=== PATIENT | female | born 1975 | race Caucasian/White ===

== ENCOUNTER → 2017-02-21 | Outpatient (CLI) | payer BC ==
--- NOTE | 2017-02-28 12:24 | MY ---
EXAMINATION: Bilateral digital mammography utilizing CAD. HISTORY: Screening exam. Comparison is made to previous studies dated 10/16/2015. FINDINGS: Bilateral heterogeneously dense breast tissue. No suspicious calcifications, masses or a rchitectural distortions. No pathologic appearing lymph nodes, no abnormal skin thickening or nipp le inversion. CAD highlighted regions appear normal at this time. IMPRESSION: BI-RADS category I - negative mammogram. Continued screening according to ACR-ACS gu idelines suggested. THE FALSE-NEGATIVE RATE OF MAMMOGRAM IS APPROXIMATELY 10%. MANAGEMENT OF A PALPABLE ABNORMALITY MUST BE BASED UPON CLINICAL GROUNDS. SENSITIVITY FOR DETECTION OF ABNORMALITIES IN DENSE BREASTS IS LOW. NOTE: A letter will be sent to the patient regarding findings. [facility] -- VINCENT Kang [phone] - FAX [phone]
== END ==
LOC: MW.MAM 12:53
PROVIDERS: ATTEND Obstetrics & Gynecology
DX: Z12.31 Encounter for screening mammogram for malignant neoplasm of breast (principal)
CPT/HCPCS: G0202; G0202-26

== ENCOUNTER 2019-10-19 09:13 | Day surgery (SDC) | payer BC ==
[~2019-10-19 09:13] MED LIST: 50% Dextrose in Water 50 ML Syringe IVPUSH PRN; Atropine 0.1 MG/ML 10 ML Syringe IVPUSH PRN; EPINEPHrine 1:10,000 1 MG/10 ML Syringe IVPUSH PRN; Midazolam 1 MG/ML 2 ML SDV ONE; Naloxone 0.4 MG/ML Syringe IVPUSH PRN; Propofol 200 MG/20 ML SDV ONE; fentaNYL 100 MCG/2 ML SDV IVPUSH PRN; fentaNYL 250 MCG/5 ML SDV ONE
--- NOTE | 2019-10-19 09:47 | PCM.PREANE ---
Preanesthetic Assessment - Anesthesia/Transfusion/Family Hx Anesthesia History: Prior Anesthesia Without Reaction Family History of Anesthesia Reaction: No Transfusion History: No Prior Transfusion(s) Intubation History: Unknown - Review of Systems General: No Symptoms Pulmonary: No Symptoms Cardiovascular: No Symptoms Gastrointestinal: No Symptoms Neurological: No Symptoms Other: Reports: None - Physical Assessment Height: 5 ft 7.25 in Weight: 107.048 kg ASA Class: 2 Mental Status: Alert & Oriented x3 Airway Class: Mallampati = 1 Dentition: Reports: Normal Dentition, Bridge (fixed right and left (back)) Thyro-Mental Finger Breadths: 3 Mouth Opening Finger Breadths: 3 ROM/Head Extension: Full Lungs: Clear to Auscultation, Normal Respiratory Effort Cardiovascular: Regular Rate, Regular Rhythm - Allergies Allergies/Adverse Reactions: Allergies Allergy/AdvReac Type Severity Reaction Status Date / Time grass pollen Allergy itchy-water Verified 10/16/19 10:09 eyes mold Allergy itchy-watery Verified 10/16/19 10:09 eyes - Blood Blood Available: No - Anesthesia Plan Pre-Op Medication Ordered: None - Acknowledgements Anesthesia Type Planned: General Anesthesia Pt an Appropriate Candidate for the Planned Anesthesia: Yes Alternatives and Risks of Anesthesia Discussed w Pt/Guardian: Yes Pt/Guardian Understands and Agrees with Anesthesia Plan: Yes PreAnesthesia Questionnaire HEENT History: Reports: Allergic Rhinitis Cardiovascular History: Reports: None Respiratory History: Reports: None Gastrointestinal History: Reports: None Genitourinary History: Reports: Urinary Incontinence 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 MANAGER History: Reports: None Musculoskeletal History: Reports: Fracture, Neck Pain, Chronic Other Musculoskeletal History: hx fx rt heel and rt wrist, herniated discs in neck Neurological History: Reports: Migraines (conrolled by propranolol) Psychiatric History: Reports: None Endocrine/Metabolic History: Reports: Obesity/BMI 30+ Hematologic History: Reports: None Immunologic History: Reports: None Oncologic (Cancer) History: Reports: None Dermatologic History: Reports: None - Past Surgical History Head Surgeries/Procedures: Reports: None HEENT Surgical History: Reports: None Cardiovascular Surgical History: Reports: None Respiratory Surgical History: Reports: None GI Surgical History: Reports: None Female Surgical History: Reports: Hysterectomy, Salpingo-Oophorectomy, Other (See Below) Other Female Surgeries/Procedures: exploratory laparotomy with lysis of adhesions Endocrine Surgical History: Reports: None Neurological Surgical History: Reports: None Musculoskeletal Surgical History: Reports: None Oncologic Surgical History: Reports: None Dermatological Surgical History: Reports: None - SUBSTANCE USE Smoking Status *Q: Never Smoker Recreational Drug Use History: No - HOME MEDS Home Medications: Home Meds Aspirin [Halfprin] 81 mg PO DAILY 10/16/19 [History] Cyanocobalamin (Vitamin B12) [Vitamin B12] 100 mcg PO DAILY 10/16/19 [History] Cyclobenzaprine [Flexeril] 10 mg PO DAILY 10/16/19 [History] Estrogens, Conjugated [Premarin] 0.625 mg PO DAILY 10/16/19 [History] Fish Oil/[place]-3 Fatty Acids [Fish Oil 1,000 MG] 1,000 mg PO DAILY 10/16/19 [ History] Herbal Supplement-Immune Supp 1 dose PO DAILY 10/16/19 [History] Ketoconazole 1 applic .ROUTE ASDIRECTED 10/16/19 [History] Loratadine [Claritin] 10 mg PO DAILY PRN 10/16/19 [History] Multivitamin [Multivitamins] 1 tab PO DAILY 10/16/19 [History] Propranolol [Inderal LA] 60 mg PO DAILY 10/16/19 [History] valACYclovir HCl [valACYclovir] 2 tab PO BID PRN 10/16/19 [History] - CURRENT (IN HOUSE) MEDS Current Meds: Current Medications Atropine Sulfate (Atropine 0.1 Mg/Ml) 0.5 mg IVPUSH ASDIRECTED PRN PRN Reason: Hypo-perfusion Stop: 10/19/19 19:36 Atropine Sulfate (Atropine 0.1 Mg/Ml) 1 mg IVPUSH ASDIRECTED PRN PRN Reason: Hypo-Perfusion Dextrose/Water (Dextrose 50% In Water) 50 ml IVPUSH ASDIRECTED PRN PRN Reason: Hypoglycemia Epinephrine HCl (Epinephrine 1:10,000) 1 mg IVPUSH ASDIRECTED PRN PRN Reason: ACLS Guidelines Fentanyl (Sublimaze) 50 mcg IVPUSH Q5M PRN PRN Reason: Pain Naloxone HCl (Narcan) 0.1 mg IVPUSH ASDIRECTED PRN PRN Reason: Respiratory Depression Discontinued Medications Fentanyl (Sublimaze) Confirm Administered Dose 250 mcg .ROUTE .STK-MED ONE Stop: 10/19/19 09:02 Midazolam HCl (Versed 1 Mg/Ml) Confirm Administered Dose 2 mg .ROUTE .STK-MED ONE Stop: 10/19/19 09:02 Propofol (Diprivan 20 Ml) Confirm Administered Dose 200 mg .ROUTE .STK-MED ONE Stop: 10/19/19 09:02
[2019-10-19] MEDS ORDERED: ceFAZolin/Dextrose,Iso-Osmotic 2 GM/50 ML Duplex Bag IV ONE (10:28)
[2019-10-19] MEDS ORDERED: Lactated Ringers 1,000 ML IV SCH (11:45)
[2019-10-19] MEDS ORDERED: Lidocaine 1% 20 ML MDV ONE (11:48)
[2019-10-19] MEDS ORDERED: Bupivacaine 0.25% 10 ML SDV ONE (11:48)
[2019-10-19] MEDS ORDERED: Neomycin/Polymyxin B Bladder Irrigation 1 ML Amp ONE (11:49)
--- NOTE | 2019-10-19 12:41 | PCM.OPNOTE ---
- General Post-Op/Procedure Note Date of Surgery/Procedure: 10/19/19 Operative Procedure(s): single incision midurethral sling Findings: urethral hypermobility. Pre Op Diagnosis: stress urinary incontinence Post-Op Diagnosis: Same Anesthesia Technique: General ET Tube Primary Surgeon: Carlie Lorenzo Anesthesia Provider: Andree Valle Drug Safety Specialist: Tiesha Dobson EBL in mLs: 20 Complications: None Known Condition: Good
--- NOTE | 2019-10-19 13:09 | PCM.POSTAN ---
POST ANESTHESIA ASSESSMENT - MENTAL STATUS Mental Status: Alert, Oriented - VITAL SIGNS Vital Signs: Last Vital Signs Temp 36.4 C 10/19/19 12:45 Pulse 64 10/19/19 13:00 Resp 12 10/19/19 13:00 BP 111/68 10/19/19 13:00 Pulse Ox 96 10/19/19 13:00 - RESPIRATORY Respiratory Status: Respiratory Rate WNL, Airway Patent, O2 Saturation Stable - CARDIOVASCULAR CV Status: Pulse Rate WNL, Blood Pressure Stable - GASTROINTESTINAL GI Status: No Symptoms - PAIN Pain Score: 0 - POST OP HYDRATION Hydration Status: Adequate & Stable - OBSERVATIONS Free Text/Narrative:: No anesthesia problems
--- NOTE | 2019-10-19 14:34 | OR ---
SURGEON: Carlie Lorenzo M.D. DATE OF PROCEDURE: 10/19/2019 PREOPERATIVE DIAGNOSIS: Stress urinary incontinence. POSTOPERATIVE DIAGNOSIS: Stress urinary incontinence. PROCEDURE: Single-incision midurethral sling. PRIMARY SURGEON: Carlie Lorenzo MD. ANESTHESIA: General and local. ESTIMATED BLOOD LOSS: Less than 20 mL. FINDINGS: Urethral hypermobility. COMPLICATIONS: None known. DISPOSITION: Stable to recovery. BRIEF HISTORY: This is a 44-year-old female with stress incontinence. We have been discussing treating this since the year of 2010. Her symptoms are worsening. She would like to proceed with intervention. She has had a cystometry, which confirmed stress incontinence and normal bladder capacity, normal bladder sensation, and confirmed urethral hypermobility. She has been provided with written information regarding midurethral slings, and she would like to proceed with a single-incision midurethral sling. Risks were discussed including offering conservative management including Kegel exercises, estrogen therapy, physical therapy. Despite these, she has noticed worsening symptoms and desires to proceed with intervention. Risks including urinary retention; voiding dysfunction; bleeding; infection; injury to organs such as bowel, bladder and ureter; possibility of requiring short-term catheterization; and risk of incontinence were also discussed. Understanding all these risks, she does desire to proceed. DESCRIPTION OF PROCEDURE: With the patient in dorsal lithotomy position, under adequate general anesthesia, the perineum and vagina were prepped with Betadine and draped in the usual fashion for vaginal surgery. SCDs were in place. The Serra catheter was placed and an appropriate time-out was held. She received 2 g of Ancef IV. By palpating the bulb of the catheter, I identified the midurethra and grasped the region, which was approximately 1.5 cm cephalad from the urethral meatus, with an Allis clamp. Hydrodissection was then performed beneath this the level of the vagina and extending laterally towards the pubic rami. An incision was made with a 15 blade scalpel and Metzenbaum scissors were used to undermine beneath the vaginal mucosa laterally on the right and the left. The Solyx sling was then placed via the incision. It was extended laterally towards the pubic ramus. The arm was then slightly dropped and the tip was placed in the obturator foramen. Slight retraction revealed the tip to be appropriately positioned and therefore was released from the handle. The opposite tip was placed on the handle and replaced on the opposite side, ensuring that the sling was not twisted and placed in a similar fashion without any difficulty. Again, confirming that it was firmly within the obturator foramen prior to removing the handle. Metzenbaum scissors were placed between the urethra and the sling. It was appropriately positioned and not overly tight. The vaginal mucosa was then closed with a running lock suture of 3-0 Polysorb. The incision was hemostatic. The bladder was backfilled with 200 mL of sterile saline for voiding trial prior to discharge. Final sponge, needle, and instrument counts were reported as correct. There were no known complications. The patient was transferred to recovery in good condition. MODESTA GONZÁLES /[id number]
--- NOTE | 2019-10-19 14:46 | PCM48HPAN ---
Post Anesthesia Note - EVALUATION WITHIN 48HRS OF ANESTHETIC Vital Signs in Normal Range: Yes Patient Participated in Evaluation: Yes Respiratory Function Stable: Yes Airway Patent: Yes Cardiovascular Function Stable: Yes Hydration Status Stable: Yes Pain Control Satisfactory: Yes Nausea and Vomiting Control Satisfactory: Yes Mental Status Recovered: Yes Vital Signs: Last Vital Signs Temp 36.0 C 10/19/19 13:36 Pulse 65 10/19/19 13:50 Resp 16 10/19/19 13:50 BP 82/68 L 10/19/19 13:50 Pulse Ox 98 10/19/19 13:50 - COMMENTS/OBSERVATIONS Free Text/Narrative:: No anesthesia problems
== END 2019-10-19 14:40 | disposition home or self-care (01) ==
LOC: MW.SDS 09:13
PROVIDERS: ATTEND Obstetrics & Gynecology
DX: N39.3 Stress incontinence (female) (male) (principal); A60.04 Herpesviral vulvovaginitis; G43.909 Migraine, unspecified, not intractable, without status migrainosus; Z79.82 Long term (current) use of aspirin; Z79.899 Other long term (current) drug therapy
CPT/HCPCS: 57288; J0690; J2001; J2250; J2704; J3010; J3490; J7120; C1771

== ENCOUNTER 2025-07-25 12:02 | Emergency (ER) | payer BC ==
[2025-07-25] MEDS ORDERED: Sodium Chloride 0.9% 2.5 ML Syringe FLUSH PRN (12:19)
[2025-07-25] MEDS ORDERED: Sodium Chloride 0.9% 10 ML Syringe FLUSH PRN (12:19)
[2025-07-25] MEDS: Alum Hydrox/Mag Hydrox/Simeth 15 ML, Lidocaine 2% 5 ML PO ONE (12:39)
[2025-07-25 12:46] LABS: BASOPHILS ABSOLUTE AUTO 0.06 K/uL (0.00-0.20); BASOPHILS PERCENT AUTO 0.5 % (0.0-1.0); EOSINOPHILS ABSOLUTE AUTO 0.31 K/uL (0.00-0.45); EOSINOPHILS PERCENT AUTO 2.7 % (0.0-6.0); IMMATURE GRAN ABSOLUTE AUTO 0.04 K/uL (0.00-0.05); IMMATURE GRAN PERCENT AUTO 0.3 % (0.0-0.4); LYMPHOCYTES ABSOLUTE AUTO 1.20 K/uL (1.00-4.80); LYMPHOCYTES PERCENT AUTO 10.4 % (24.0-44.0); MEAN PLATELET VOLUME 10.8 fL (9.4-12.3); MONOCYTES ABSOLUTE AUTO 0.91 K/uL (0.00-0.80); MONOCYTES PERCENT AUTO 7.9 % (0.0-8.0); NEUTROPHILS ABSOLUTE AUTO 9.07 K/uL (1.80-7.70); NEUTROPHILS PERCENT AUTO 78.2 % (41.0-71.0); NRBC ABSOLUTE 0.00 K/uL (0.00-0.02); NRBC PERCENT 0.0 /100WBC (0.0-0.2); PLATELET COUNT,PLT 148 K/uL (150-400); RED BLOOD CELL COUNT 4.01 M/uL (4.10-5.30); WHITE BLOOD CELL COUNT,WBC 11.59 K/uL (3.9-11.3)
[2025-07-25 13:25] LABS: A/G RATIO 0.9 (0.9-1.6); ALANINE AMINOTRANSFERASE,ALT 32.0 IU/L (14-63); ASPARTATE AMNIOTRANSFERASE,AST 31.0 IU/L (15-37); BILIRUBIN TOTAL 1.1 mg/dL (0.2-1.0); BLOOD UREA NITROGEN,BUN 9.0 mg/dL (7.0-18.0); CARBON DIOXIDE,CO2 25.1 mmol/L (21.0-32.0); CHLORIDE,CL 99.0 mmol/L (98-107); CREATININE 0.7 mg/dL (0.6-1.0); EST CRCL DRUG DOSING (CG) 96.99 mL/min; GLUCOSE RANDOM 131.0 mg/dL (74-106); POTASSIUM,K 4.0 mmol/L (3.5-5.1); PRO B-TYPE NATRIUR PEPT,BNPPRO 3118.0 pg/mL (0-125); PROTEIN TOTAL,TP 6.9 g/dL (6.4-8.2); SODIUM,NA 135.0 mmol/L (136-145)
[2025-07-25 13:27] LABS: ESTIMATED GFR 105.0 mL/min (>60)
[2025-07-25] MEDS: Iopamidol 755 MG/ML 500 ML Multipack Bottle IVPUSH STA (13:28)
[2025-07-25] MEDS: Heparin Sodium 5,000 Units/ML Vial IVPUSH ONE (14:43)
[2025-07-25 14:59] VITALS: BP 119/67; PULSE 102
[2025-07-25] MEDS: Heparin Sodium/0.45% NaCl 25,000 UNITS/250 ML BAG IV SCH (14:59)
== END 2025-07-25 16:46 ==
LOC: MW.ED 12:02
DX: I21.4 Non-ST elevation (NSTEMI) myocardial infarction (principal); R51.9 Headache, unspecified; E66.9 Obesity, unspecified; Z90.710 Acquired absence of both cervix and uterus; Z79.82 Long term (current) use of aspirin; Z79.899 Other long term (current) drug therapy; Z68.37 Body mass index [BMI] 37.0-37.9, adult
CPT/HCPCS: 36415; 70450; 70450-26; 71275; 71275-26; 80053; 83690; 83735; 83880; 84484; 85025; 85730; 93005; 96361; 96365; 96366; 99285-25; A9270-GY; J1644; J7030; Q9967